=== PATIENT | male | born 1985 | race African-American/Black ===

== ENCOUNTER 2019-11-15 08:15 | Emergency (ER) | payer SELFPAY ==
[2019-11-15 08:26] VITALS: BP 179/87; PULSE 103; RESP 20; TEMP 36.6; O2SAT 100
--- NOTE | 2019-11-15 08:45 | ED.NECK ---
HPI - Neck Pain/Injury General Chief Complaint: Neck Pain/Injury Stated Complaint: neck pain Time Seen by Provider: 11/15/19 08:33 Source: patient and RN notes reviewed Mode of arrival: ambulatory Limitations: no limitations History of Present Illness HPI Narrative: Patient presents today complaining of bilateral neck pain, left greater than right. Pain radiates down to the mid back. Pain started yesterday evening and is not improving. Denies numbness or tingling in the extremities. Denies any recent injury or heavy lifting. Currently rates his pain 6/10, which increases with movement of the head from side to side. MD complaint: neck pain Related Data Allergies Allergy/AdvReac Type Severity Reaction Status Date / Time No Known Allergies Allergy Uncoded 04/05/19 17:53 Review of Systems Review of Systems: Narrative: CONSTITUTIONAL: Denies body aches, fever, chills, or sweats. EYES: Denies visual changes, redness, or discharge. ENT: Denies rhinorrhea, congestion, sore throat, or otalgia. CARDIOVASCULAR: Denies chest pain, palpitations, or edema. RESPIRATORY: Denies cough or dyspnea. GASTROINTESTINAL: Denies abdominal pain, nausea, vomiting, or diarrhea. GENITOURINARY: Denies dysuria or hematuria. SKIN: Denies rash, itching, or wounds. MUSCULOSKELETAL: Denies joint pain, or myalgia.+ Neck and upper back pain NEUROLOGIC: Denies headache, numbness, tingling, or weakness. PSYCH: Denies depression or anxiety. PMFSH Social History Social History Gender identity (if verbalized by the patient): Male Comments At time of signature, I have reviewed and agree with nursing past medical, surgical, social and family history unless otherwise noted. Please see nursing chart for further information. There is no relevant family history pertinent to the presenting complaint Exam Narrative: Exam Narrative: GENERAL: Well-appearing, well-nourished, and in no acute distress. HEAD: Normocephalic, atraumatic. EYES: EOMI. No redness or drainage. Conjunctivae normal. ENT: Mucous membranes pink and moist. NECK: Normal AROM. Increased pain with turning the head right and left. No pain with flexion or extension of the neck. Supple. No lymphadenopathy. No bony tenderness of the cervical spine. Tenderness to the bilateral cervical paraspinal muscles, right greater than left. This tenderness extends to the bilateral lower trapezius. Sensation intact. Capillary refill normal. Radial pulses normal. Handgrips normal and strong. CHEST: No respiratory distress. MUSCULOSKELETAL: No bony tenderness of the spine. Tenderness to bilateral trapezius EXTREMITIES: Normal range of motion. No edema. SKIN: Warm, dry, no rash. Capillary refill normal. Normal skin turgor. NEURO: No focal deficits. Alert and oriented x3. Gait steady. PSYCH: Normal affect. No signs of depression or anxiety. Course Vital Signs Vital signs: Vital Signs Temperature 97.9 F 11/15/19 08:26 Pulse Rate 103 H 11/15/19 08:26 Respiratory Rate 20 11/15/19 08:26 Blood Pressure 179/87 H 11/15/19 08:26 Pulse Oximetry 100 11/15/19 08:26 Temperature 97.9 F 11/15/19 08:26 Pulse Rate 103 H 11/15/19 08:26 Respiratory Rate 20 11/15/19 08:26 Blood Pressure 179/87 H 11/15/19 08:26 Pulse Oximetry 100 11/15/19 08:26 Reviewed. Pt has been instructed to follow up with his PCP regarding his elevated blood pressure today. MDM - Neck Pain/Injury Differential Diagnosis Differential diagnosis: Likely torticollis, strain of neck muscle and other (Trapezius strain, thoracic strain) Critical Care Time Critical Care Time Critical Care Time: No Discharge Plan Discharge Clinical Impression: Strain of left trapezius muscle Qualifiers: Encounter type: initial encounter Qualified Code(s): S46.812A - Strain of other muscles, fascia and tendons at shoulder and upper arm level, left arm, initial encounter Strain of right trapezius muscle Qualifiers: Encou
== END 2019-11-15 08:52 | disposition home or self-care (01) ==
PROVIDERS: Emergency Provider Nurse Practitioner
DX: S46.812A Strain of other muscles, fascia and tendons at shoulder and upper arm level, left arm, initial encounter (principal); S46.811A Strain of other muscles, fascia and tendons at shoulder and upper arm level, right arm, initial encounter; R03.0 Elevated blood-pressure reading, without diagnosis of hypertension; X58.XXXA Exposure to other specified factors, initial encounter
CPT/HCPCS: 99213; G0463

== ENCOUNTER 2021-03-26 08:39 | Emergency (ER) | payer OTHER, SELFPAY ==
[2021-03-26 08:45] VITALS: BP 158/118
--- NOTE | 2021-03-26 08:48 | ED.EYEPROB ---
HPI - Eye Problem General Chief complaint: Eye Problems Stated complaint: right eye painful/redness Time Seen by Provider: 03/26/21 09:00 Source: patient and RN notes reviewed Mode of arrival: ambulatory Limitations: no limitations History of Present Illness HPI Narrative: Ravindra is a 35-year-old male patient who who ambulated into the [facility] with complaint of right eye redness and pain. Patient states that 2 days ago he felt like something was in his eye. Patient states that he irrigated his eye with contact solution. Patient states yesterday the eye was reddened with some drainage. Patient states he has no changes in his vision. Patient states he has been using warm compresses to the eye. MD chief complaint: eye pain Related Data Allergies Allergy/AdvReac Type Severity Reaction Status Date / Time No Known Allergies Allergy Unknown Uncoded 03/26/21 09:06 Review of Systems Review of Systems: CONSTITUTIONAL: Denies body aches, fever, chills, or sweats. EYES: Denies visual changes, +redness, +discharge. ENT: Denies rhinorrhea, congestion, sore throat, or otalgia. CARDIOVASCULAR: Denies chest pain, palpitations, or edema. RESPIRATORY: Denies cough or dyspnea. GASTROINTESTINAL: Denies abdominal pain, nausea, vomiting, or diarrhea. GENITOURINARY: Denies dysuria or hematuria. SKIN: Denies rash, itching, or wounds. MUSCULOSKELETAL: Denies back pain, joint pain, or myalgia. NEUROLOGIC: Denies headache, numbness, tingling, or weakness. PSYCH: Denies depression or anxiety. All systems reviewed & are unremarkable except as noted in HPI and below PMFSH Social History Social History Gender identity (if verbalized by the patient): Male Exam Narrative: GENERAL: Well-appearing, well-nourished, and in no acute distress. HEAD: Normocephalic, atraumatic. EYES: EOMI. conjuctiva erythemic, pinpoint corneal abrasion at 9pm position. ENT: Mucous membranes pink and moist. Nares clear. No rhinorrhea. . NECK: Normal AROM. Supple. No lymphadenopathy. MUSCULOSKELETAL: No bony tenderness. EXTREMITIES: Normal range of motion. No edema. SKIN: Warm, dry, no rash. Capillary refill normal. Normal skin turgor. NEURO: No focal deficits. Alert and oriented x3. Gait steady. PSYCH: Normal affect. No signs of depression or anxiety. Course Vital Signs Vital signs: Reviewed. Pt has been instructed to follow up with his PCP regarding his elevated blood pressure today. Procedures Other Procedure Procedure 1: Other Procedure: Right eye was anesthetized with 1 drop of tetracaine and anesthesia was achieved. Lid was inverted and examined. Moistened Qtip was used to sweep underneath the upper eyelid with no foreign bodies resulting. Cornea was dyed with fluorescein and one corneal abrasions at 9 o'clock position was noted. Pt tolerated procedure well. MDM - Eye Problem MDM Narrative Medical decision making narrative: Right eye was examined with fluorescein stain and Crow lamp. Small abrasion to the 9 o'clock position was noted. Patient's blood pressure was rechecked it was 158/110. Patient was directed to follow-up with his primary care immediately Patient states he has known he has had hypertension and states he has been meaning to follow-up. Differential Diagnosis Differential diagnosis: Likely corneal abrasion, conjunctivitis, periorbital cellulitis and corneal ulcer Medical Records Attestation: I reviewed the patient's medical records. Critical Care Time Critical Care Time Critical Care Time: No Discharge Plan Discharge Clinical Impression: Corneal abrasion Qualifiers: Encounter type: initial encounter Laterality: right Qualified Code(s): S05.01XA - Injury of conjunctiva and corneal abrasion without foreign body, right eye, initial encounter Patient Disposition: Home, Self-Care Condition: Stable Instructions: Antibiotic Form, Corneal Abrasion (DC) Ad
[2021-03-26 08:52] VITALS: BP 171/110; PULSE 74; RESP 16; TEMP 36.6; O2SAT 99
== END 2021-03-26 09:17 | disposition home or self-care (01) ==
PROVIDERS: Emergency Provider Nurse Practitioner Family
DX: S20.111A Abrasion of breast, right breast, initial encounter (principal); X58.XXXA Exposure to other specified factors, initial encounter
CPT/HCPCS: 99213; A9270; G0463

== ENCOUNTER 2021-03-27 03:00 | Emergency (ER) | payer OTHER, SELFPAY ==
[2021-03-27 03:01] VITALS: BP 181/119; PULSE 58; RESP 16; TEMP 36.6; O2SAT 100
--- NOTE | 2021-03-27 03:21 | ED.EYEPROB ---
HPI - Eye Problem General Chief complaint: Eye Problems Stated complaint: eye pain Time Seen by Provider: 03/27/21 03:12 Source: patient Mode of arrival: EMS Limitations: no limitations History of Present Illness HPI Narrative: Patient is a 35-year-old male complaining of right eye pain and redness. Patient was seen at another ER, [facility], approximately 5 to 6 hours ago, states that he was given Cipro eyedrops, was told that he had a scratch in his cornea, and was told to follow-up with an research center partner. Patient states that he is still having pain and that is why called EMS. Related Data Allergies Allergy/AdvReac Type Severity Reaction Status Date / Time No Known Allergies Allergy Unknown Uncoded 03/27/21 03:07 [facility] Social History Social History Gender identity (if verbalized by the patient): Male Comments Past medical history: None Family history: Noncontributory Social history: Non-smoker no EtOH or drug use Exam Const: General: no acute distress and alert Orientation/consciousness: patient oriented x3 HENMT: Other: Injected conjunctiva, extraocular muscles intact, pupils equally reactive to light and accommodation Course Vital Signs Vital signs: Vital Signs Temperature 36.6 C 03/27/21 03:01 Pulse Rate 58 L 03/27/21 03:01 Respiratory Rate 16 03/27/21 03:01 Blood Pressure 181/119 H 03/27/21 03:01 Pulse Oximetry 100 03/27/21 03:01 Temperature 36.6 C 03/27/21 03:01 Pulse Rate 58 L 03/27/21 03:01 Respiratory Rate 16 03/27/21 03:01 Blood Pressure 181/119 H 03/27/21 03:01 Pulse Oximetry 100 03/27/21 03:01 Discharge Plan Discharge Clinical Impression: Corneal abrasion Qualifiers: Encounter type: subsequent encounter Laterality: right Qualified Code(s): S05.01XD - Injury of conjunctiva and corneal abrasion without foreign body, right eye, subsequent encounter Patient Disposition: Home, Self-Care Condition: Stable Instructions: Eye Pain (ED) Additional Instructions: Follow-up with ophthalmology tomorrow Prescriptions: No Action ciprofloxacin HCl 0.3 % drops 2 drp RIGHT EYE QID 5 Days Qty: 2.5 RF: 0 Follow-up/Referrals: UNKNOWN,DOCTOR [Primary Care Provider] - Time of Disposition: 03:27
[2021-03-27] MEDS: HYDROcodone/acetaminophen (*CRX) 7.5-325 MG TABLET 1 TAB PO (03:52)
[2021-03-27 04:17] VITALS: BP 150/100; PULSE 64; RESP 16; O2SAT 100
--- NOTE | 2021-03-27 04:19 | PC.NURSE ---
Pain medication was administered at discharge so pain was not re assessed on this pt.
== END 2021-03-27 04:19 | disposition home or self-care (01) ==
LOC: ANHED 03:53
PROVIDERS: Emergency Provider Emergency Medicine
DX: S05.01XA Injury of conjunctiva and corneal abrasion without foreign body, right eye, initial encounter (principal); X58.XXXA Exposure to other specified factors, initial encounter
CPT/HCPCS: 99283; A9270

== ENCOUNTER 2021-03-30 12:34 | Emergency (ER) | payer OTHER, SELFPAY ==
[2021-03-30 12:37] VITALS: BP 147/91; PULSE 81; RESP 16; TEMP 36.4; O2SAT 98
--- NOTE | 2021-03-30 13:08 | ED.EYEPROB ---
HPI - Eye Problem General Chief complaint: Eye Problems Stated complaint: eye problems Time Seen by Provider: 03/30/21 12:47 Source: patient Mode of arrival: ambulatory Limitations: no limitations History of Present Illness HPI Narrative: Patient is a 35-year-old male sent here by an dancing master due to right eye redness and swelling, he was given a paper with findings that says unspecified carotid conjunctivitis possible Pseudomonas and or a cath in the back infection recommending a corneal specialist . Patient also complaining of a sore throat. Denies any dysphagia, fever or chills. Related Data Allergies Allergy/AdvReac Type Severity Reaction Status Date / Time No Known Allergies Allergy Unknown Uncoded 03/27/21 03:07 Review of Systems Review of Systems: All systems reviewed & are unremarkable except as noted in HPI and below Constitutional: Constitutional: Denies body ache(s), Denies chills, Denies excessive sweating, Denies fatigue, Denies fever(s), Denies headache(s), Denies lethargy, Denies malaise, Denies weakness and Denies weight loss Eyes: Eyes: Denies loss of vision ENT: Denies dizziness, Denies ear discharge, Denies headache(s), Denies lip swelling, Denies epistaxis, Denies nasal congestion, Denies neck pain, Denies throat swelling and Denies tongue swelling Cardiovascular: Cardiovascular: Denies chest pain, Denies chest pain at rest, Denies chest pain with activity, Denies diaphoresis, Denies rapid heart rate, Denies edema, Denies irregular heart rhythm, Denies lightheadedness, Denies palpitations, Denies dyspnea and Denies dyspnea on exertion Respiratory: Respiratory: Denies chest congestion, Denies cough, Denies hemoptysis, Denies dyspnea and Denies dyspnea on exertion Gastrointestinal: Gastrointestinal: Denies abdominal pain, Denies melena, Denies hematochezia, Denies diarrhea, Denies nausea, Denies vomiting and Denies hematemesis Musculoskeletal: Musculoskeletal: Denies abnormal gait, Denies deformity, Denies joint swelling, Denies limited range of motion, Denies neck pain and Denies numbness Neurologic: Denies Abnormal speech present, Denies abnormal gait, Denies confusion, Denies dizziness, Denies headache(s), Denies focal weakness, Denies loss of vision, Denies numbness, Denies Other visual disturbances, Denies Sensory deficit (Neuro) and Denies weakness Psychiatric: Psychiatric: Denies confusion, Denies depression, Denies auditory hallucinations, Denies homicidal ideation and Denies suicidal ideation Endocrine: Endocrine: Denies cold intolerance, Denies excessive sweating, Denies fatigue, Denies heat intolerance and Denies palpitations Hematologic/Lymphatic: Hematologic/Lymphatic: Denies easy bleeding and Denies easy bruising Allergic/Immunologic: Allergic/Immunologic: Denies lip swelling, Denies throat swelling and Denies tongue swelling PMFSH Social History Social History Gender identity (if verbalized by the patient): Male Exam Const: General: cooperative, healthy appearing, comfortable, no acute distress, well developed, alert and awake; No confusion Orientation/consciousness: oriented to person, oriented to place, oriented to time, patient oriented x3 and No confusion Limitations: no limitations HENMT: Head: normal to inspection, normocephalic and atraumatic Ears: hearing grossly normal bilaterally, TM normal on the right and TM normal on the left General nose exam: Normal external nose present, Normal nares present and No nasal discharge present Face and sinus: normal facial exam Mouth: Yes Normal oral and palatal mucosa present, Yes lip normal, Yes tongue normal and Yes oropharynx normal Throat: uvula midline and posterior oropharynx abnormal edema (Mild) and erythema Eyes: Pupils: Equal, round and reactive pupils present EOM: EOMs intact bilaterally Other: Swollen periorbital area, injected conjunctiva, matting of the eyelashes Neck
--- NOTE | 2021-03-30 14:20 | PC.NURSE ---
Report called to Efrain at [facility].
--- NOTE | 2021-03-30 14:36 | PC.NURSE ---
[facility] accepted transfer to [facility] ETA 2 hrs Trip#[id number]
--- NOTE | 2021-03-30 17:07 | PC.NURSE ---
Patient ambulated from ED at this time. Patient did not speak to this nurse or staff prior to departure. Patient eloped self from ED prior to transport to facility. Patient ambulated from ED with steady gait. Nothing further to report at this time.
== END 2021-03-30 17:16 | disposition left against medical advice (07) ==
PROVIDERS: Emergency Provider Emergency Medicine; PCP Family Medicine
DX: H16.201 Unspecified keratoconjunctivitis, right eye (principal)
CPT/HCPCS: 87081; 87880; 99283